=== PATIENT | male | born 1995 | race Hispanic/Latino ===

== ENCOUNTER 2023-05-15 20:15 | Emergency (ER) | payer OTHER ==
[~2023-05-15] VITALS: Ht 170.2 cm; Wt 80.3 kg
[2023-05-16 00:19] VITALS: BP 129/73; TEMP 98.5; O2SAT 97
== END 2023-05-16 00:21 | disposition home or self-care (01) ==
LOC: M ED 20:15
DX: M25.512 Pain in left shoulder (principal); X50.0XXA Overexertion from strenuous movement or load, initial encounter; F17.200 Nicotine dependence, unspecified, uncomplicated; Y99.1 Military activity

== ENCOUNTER 2025-05-12 13:34 | Emergency (ER) | payer OTHER ==
[~2025-05-12] VITALS: Ht 170.2 cm; Wt 79.3 kg
[2025-05-12 15:03] VITALS: BP 113/59; TEMP 98.4; O2SAT 97
== END 2025-05-12 15:15 | disposition home or self-care (01) ==
LOC: M ED 13:34
DX: S39.012A Strain of muscle, fascia and tendon of lower back, initial encounter (principal); S16.1XXA Strain of muscle, fascia and tendon at neck level, initial encounter; V40.0XXA Car driver injured in collision with pedestrian or animal in nontraffic accident, initial encounter; J34.1 Cyst and mucocele of nose and nasal sinus; M50.30 Other cervical disc degeneration, unspecified cervical region; Y92.410 Unspecified street and highway as the place of occurrence of the external cause; Y93.89 Activity, other specified; Y99.9 Unspecified external cause status